=== PATIENT | male | born 1985 | race African-American/Black ===

== ENCOUNTER 2017-07-13 23:01 | Emergency (ER) | payer OTHER ==
[~2017-07-13] VITALS: Ht 167.6 cm; Wt 81.7 kg
[~2017-07-13 23:01] MED LIST: ABILIFY10 MG PO; RITALIN10 MG; SEROQUEL 50 MG50 M1 PO; TOPROL XL25 MG PO; ULTRAM 50MG TAB50 MG PO; UNK MED
[2017-07-13 23:03] VITALS: BP 154/99
[2017-07-13] MEDS ORDERED: SEROQUEL 50 MG50 MG PO ×2 (23:14→23:18)
== END 2017-07-13 23:42 | disposition home or self-care (01) ==
LOC: ER 23:01
DX: Z76.0 Encounter for issue of repeat prescription (principal); F41.9 Anxiety disorder, unspecified; I10 Essential (primary) hypertension

== ENCOUNTER 2018-05-03 02:37 | Emergency (ER) | payer OTHER ==
[~2018-05-03] VITALS: Ht 154.9 cm; Wt 63.5 kg
[~2018-05-03 02:37] MED LIST changes: +HYDROXYZINE HCL25 M1 PO; +SEROQUEL 50 MG50 MG PO
[2018-05-03 05:35] VITALS: BP 142/91
== END 2018-05-03 05:37 | disposition home or self-care (01) ==
LOC: ER 02:37
DX: F41.9 Anxiety disorder, unspecified (principal); R51 Headache; I10 Essential (primary) hypertension

== ENCOUNTER 2018-11-11 23:30 | Emergency (ER) | payer OTHER ==
[~2018-11-11] VITALS: Ht 172.7 cm; Wt 81.7 kg
[2018-11-12 04:00] VITALS: BP 132/78
== END 2018-11-12 05:14 | disposition home or self-care (01) ==
LOC: ER 23:30
DX: F41.9 Anxiety disorder, unspecified (principal); I10 Essential (primary) hypertension

== ENCOUNTER 2018-12-09 23:56 | Emergency (ER) | payer OTHER ==
[~2018-12-09] VITALS: Ht 167.6 cm; Wt 81.7 kg
[2018-12-10 00:25] LABS: ABSOLUTE NEUTROPHILS 1.9 thou/uL (1.4-8.2); BASOPHILS 0.7 % (0.0-2.0); EOSINOPHILS 1.3 % (0.0-3.0); HEMATOCRIT 43.6 % (42.0-52.0); HEMOGLOBIN 14.7 gm/dL (14.0-18.0); LYMPHOCYTES 30.9 % (24.0-44.0); MCH 29.4 pg (26.0-34.0); MCHC 33.8 g/dL (28.0-37.0); MCV 87.2 fL (80.0-100.0); MONOCYTES 9.1 % (1.0-8.0); PLATELET COUNT 185 thou/uL (150-400); RDW 13.4 % (10.5-14.5); WBC 3.3 thou/uL (4.0-11.0)
[2018-12-10 00:27] LABS: URINE BILIRUBIN NEGATIVE (Negative); URINE BLOOD NEGATIVE (Negative); URINE CLARITY CLEAR; URINE COLOR YELLOW; URINE GLUCOSE-RANDOM* NEGATIVE (Negative); URINE KETONES NEGATIVE (Negative); URINE LEUKOCYTES-REFLEX NEGATIVE (Negative); URINE NITRITE-REFLEX NEGATIVE (Negative); URINE PROTEIN (DIPSTICK) NEGATIVE (Negative); URINE SPECIFIC GRAVITY <= 1.005 (1.005-1.035); URINE UROBILINOGEN 0.2 E.U./dl (0.2-1.0)
[2018-12-10 00:47] LABS: ANION GAP 9 mmol/L (7-16); BUN 8 mg/dL (7-18); CHLORIDE 102 mmol/L (98-107); CO2 29 mmol/L (21-32); CREATININE 1.1 mg/dL (0.7-1.3); GLUCOSE 100 mg/dL (74-106); POTASSIUM 3.9 mmol/L (3.5-5.1); SODIUM 140 mmol/L (136-145)
[2018-12-10 00:48] LABS: AMP/METHAMP Negative (Negative); BARBITURATES Negative (Negative); BENZODIAZEPINES Negative (Negative); COCAINE Negative (Negative); METHADONE Negative (Negative); OPIATES Negative (Negative); PCP Negative (Negative)
[2018-12-10 00:53] LABS: SALICYLATE < 2.8 mg/dL (2.8-20.0); SGOT 26 U/L (15-37); SGPT 22 U/L (30-65); TOTAL BILIRUBIN 0.2 mg/dL (<0.1-1.0); TOTAL PROTEIN 7.7 g/dL (6.4-8.2)
[2018-12-10] MEDS ORDERED: ATIVAN0.5 MG PO (00:55)
[2018-12-10 01:25] VITALS: BP 145/101
== END 2018-12-10 01:26 | disposition home or self-care (01) ==
LOC: ER 23:56
PROVIDERS: Emergency Medicine
DX: F41.9 Anxiety disorder, unspecified (principal); I10 Essential (primary) hypertension; F84.0 Autistic disorder; Z59.9 Problem related to housing and economic circumstances, unspecified

== ENCOUNTER 2018-12-16 03:05 | Emergency (ER) | payer OTHER ==
[~2018-12-16] VITALS: Ht 167.6 cm; Wt 81.7 kg
[~2018-12-16 03:05] MED LIST changes: +ATIVAN0.5 MG PO
[2018-12-16 03:16] VITALS: BP 144/89
== END 2018-12-16 06:00 | disposition home or self-care (01) ==
LOC: ER 03:05
DX: F41.9 Anxiety disorder, unspecified (principal); F84.0 Autistic disorder; Z63.8 Other specified problems related to primary support group; I10 Essential (primary) hypertension

== ENCOUNTER 2019-02-19 00:22 | Emergency (ER) | payer OTHER ==
[~2019-02-19] VITALS: Ht 152.4 cm; Wt 75.3 kg
[2019-02-19 02:08] VITALS: BP 140/78
== END 2019-02-19 02:08 | disposition home or self-care (01) ==
LOC: ER 00:22
DX: F41.9 Anxiety disorder, unspecified (principal); I10 Essential (primary) hypertension

== ENCOUNTER 2019-06-14 04:45 | Emergency (ER) | payer OTHER ==
[~2019-06-14] VITALS: Ht 165.1 cm; Wt 72.6 kg
[2019-06-14] MEDS ORDERED: NORVASC5 MG PO (05:04)
[2019-06-14 06:14] LABS: AMP/METHAMP Negative (Negative); BARBITURATES Negative (Negative); BENZODIAZEPINES Negative (Negative); COCAINE Negative (Negative); METHADONE Negative (Negative); OPIATES Negative (Negative); PCP Negative (Negative)
[2019-06-14 06:24] LABS: HEMATOCRIT 40.5 % (42.0-52.0); HEMOGLOBIN 13.4 gm/dL (14.0-18.0); MCH 28.8 pg (26.0-34.0); MCV 87.3 fL (80.0-100.0); RBC 4.65 mil/uL (4.50-6.00); RDW 13.5 % (10.5-14.5); WBC 3.4 thou/uL (4.0-11.0)
[2019-06-14 06:52] LABS: POTASSIUM 3.7 mmol/L (3.5-5.1)
[2019-06-14 07:05] VITALS: BP 131/86
== END 2019-06-14 07:30 | disposition home or self-care (01) ==
LOC: ER 04:45
PROVIDERS: Emergency Medicine
DX: F41.9 Anxiety disorder, unspecified (principal); F91.9 Conduct disorder, unspecified; I10 Essential (primary) hypertension

== ENCOUNTER 2019-08-31 01:14 | Emergency (ER) | payer OTHER ==
[~2019-08-31] VITALS: Ht 152.4 cm; Wt 72.6 kg
[~2019-08-31 01:14] MED LIST changes: +NORVASC5 MG PO
[2019-08-31 01:23] VITALS: BP 146/90
== END 2019-08-31 02:16 | disposition home or self-care (01) ==
LOC: ER 01:14
DX: F41.9 Anxiety disorder, unspecified (principal); F84.0 Autistic disorder; I10 Essential (primary) hypertension; E66.9 Obesity, unspecified; Z68.31 Body mass index [BMI] 31.0-31.9, adult

== ENCOUNTER 2020-06-19 23:22 | Emergency (ER) | payer OTHER ==
[~2020-06-19] VITALS: Ht 157.5 cm; Wt 81.7 kg
[2020-06-19] MEDS ORDERED: HYDROXYZINE HCL25 M2 PO (23:47)
[2020-06-20 01:15] VITALS: BP 187/115
== END 2020-06-20 01:34 | disposition home or self-care (01) ==
LOC: ER 23:22
DX: F41.9 Anxiety disorder, unspecified (principal); F84.0 Autistic disorder; I10 Essential (primary) hypertension; Z79.899 Other long term (current) drug therapy

== ENCOUNTER 2021-01-23 16:54 | Emergency (ER) | payer OTHER ==
[~2021-01-23] VITALS: Ht 167.6 cm; Wt 95.3 kg
[~2021-01-23 16:54] MED LIST changes: +HYDROXYZINE HCL25 M2 PO
[2021-01-23] MEDS ORDERED: TOPROL XL50 MG PO (17:15)
[2021-01-23] MEDS ORDERED: HYDROXYZINE HCL25 M2 PO (17:15)
[2021-01-23] MEDS ORDERED: NORVASC5 MG PO (17:15)
[2021-01-23 17:29] VITALS: BP 136/78
== END 2021-01-23 17:40 | disposition home or self-care (01) ==
LOC: ER 16:54
DX: F41.9 Anxiety disorder, unspecified (principal); I10 Essential (primary) hypertension; E11.9 Type 2 diabetes mellitus without complications; Z79.899 Other long term (current) drug therapy

== ENCOUNTER 2021-02-18 21:22 | Emergency (ER) | payer OTHER ==
[~2021-02-18] VITALS: Ht 157.5 cm; Wt 127.0 kg
[~2021-02-18 21:22] MED LIST changes: +TOPROL XL50 MG PO
[2021-02-18] MEDS ORDERED: BACITRACIN-POL3.5 GM LT. EYE (21:42)
[2021-02-18] MEDS ORDERED: METOPROLOL SUCC50 MG PO (21:52)
[2021-02-18 21:57] VITALS: BP 152/103
== END 2021-02-18 21:57 | disposition home or self-care (01) ==
LOC: ER 21:22
DX: G24.5 Blepharospasm (principal); L30.9 Dermatitis, unspecified; I10 Essential (primary) hypertension; F41.9 Anxiety disorder, unspecified; F84.0 Autistic disorder; Z79.899 Other long term (current) drug therapy

== ENCOUNTER 2021-03-18 23:46 | Emergency (ER) | payer OTHER ==
[~2021-03-18] VITALS: Ht 167.6 cm; Wt 85.7 kg
[~2021-03-18 23:46] MED LIST changes: +BACITRACIN-POL3.5 GM LT. EYE; +METOPROLOL SUCC50 MG PO
[2021-03-19 00:37] LABS: ABSOLUTE NEUTROPHILS 3.8 thou/uL (1.4-8.2); BASOPHILS 0.5 % (0.0-2.0); EOSINOPHILS 0.1 % (0.0-3.0); HEMATOCRIT 42.3 % (42.0-52.0); HEMOGLOBIN 14.3 gm/dL (14.0-18.0); LYMPHOCYTES 17.2 % (24.0-44.0); MCH 29.2 pg (26.0-34.0); MCHC 33.9 g/dL (28.0-37.0); MCV 86.1 fL (80.0-100.0); MONOCYTES 5.1 % (1.0-8.0); PLATELET COUNT 190 thou/uL (150-400); POLYS 77.1 % (36.0-66.0); RBC 4.91 mil/uL (4.50-6.00); RDW 13.1 % (10.5-14.5)
[2021-03-19 00:42] LABS: URINE BILIRUBIN NEGATIVE (Negative); URINE BLOOD NEGATIVE (Negative); URINE CLARITY CLEAR; URINE COLOR YELLOW; URINE GLUCOSE-RANDOM* NEGATIVE (Negative); URINE KETONES NEGATIVE (Negative); URINE LEUKOCYTES-REFLEX NEGATIVE (Negative); URINE NITRITE-REFLEX NEGATIVE (Negative); URINE PROTEIN (DIPSTICK) NEGATIVE (Negative); URINE UROBILINOGEN 0.2 E.U./dl (0.2-1.0)
[2021-03-19 00:44] LABS: CALCIUM 8.8 mg/dL (8.5-10.1); CREATININE 1.1 mg/dL (0.7-1.3); POTASSIUM 3.5 mmol/L (3.5-5.1)
[2021-03-19 02:59] VITALS: BP 160/100
== END 2021-03-19 03:00 | disposition home or self-care (01) ==
LOC: ER 23:46
PROVIDERS: Emergency Medicine
DX: R51.9 Headache, unspecified (principal); R11.2 Nausea with vomiting, unspecified; I10 Essential (primary) hypertension

== ENCOUNTER 2021-08-15 17:00 | Emergency (ER) | payer OTHER ==
[~2021-08-15] VITALS: Ht 157.5 cm; Wt 86.2 kg
[2021-08-15 17:01] VITALS: BP 171/105
[2021-08-15] MEDS ORDERED: NAPROSYN500 MG PO (17:17)
[2021-08-15] MEDS ORDERED: KEFLEX250 MG PO (17:17)
== END 2021-08-15 17:41 | disposition home or self-care (01) ==
LOC: ER 17:00
DX: M79.644 Pain in right finger(s) (principal); I10 Essential (primary) hypertension; F41.9 Anxiety disorder, unspecified; Z79.899 Other long term (current) drug therapy

== ENCOUNTER 2021-11-22 22:46 | Emergency (ER) | payer OTHER ==
[~2021-11-22] VITALS: Ht 157.5 cm; Wt 86.2 kg
[~2021-11-22 22:46] MED LIST changes: +KEFLEX250 MG PO; +NAPROSYN500 MG PO
[2021-11-22 23:07] VITALS: BP 164/107
== END 2021-11-23 00:04 | disposition home or self-care (01) ==
LOC: ER 22:46
DX: F41.9 Anxiety disorder, unspecified (principal); I10 Essential (primary) hypertension; E11.9 Type 2 diabetes mellitus without complications; Z79.899 Other long term (current) drug therapy